=== PATIENT | male | born 1940 | race Caucasian/White ===

== ENCOUNTER 2016-08-05 09:44 | Emergency (ER) | payer OTHER ==
[~2016-08-05] VITALS: Ht 170.2 cm; Wt 77.1 kg
[~2016-08-05 09:44] MED LIST: ALLERGY RELIEF25 M2 PO; AMBIEN 10 MG TA10 MG PO; AMBIEN 5 MG TABL5 M1 PO; APAP/CODEINE ELI5 M1 OR; ASPIRIN81 M2 PO; BENTYL 10 MG CA10 M1 PO; BENTYL 20 MG TA20 M1 PO; CARBAMAZEPINE100 MG PO; CEFDINIR300 MG PO; CENTRUM SILVER1 EAC2 PO; DOXYCYCLINE 10100 MG PO; DOXYCYCLINE HY100 M3 PO; DULERA 100 MCG/13 GM INH; EQUETRO100 MG PO; FISH OIL 1,001000 M2 PO; FLAGYL500 MG PO; FLOMAX0.4 MG PO; GABAPENTIN 100100 MG PO; GINKGO BILOBA30 MG; LANSOPRAZOLE30 MG PO; LEVAQUIN 500 M500 M4 PO; LEVAQUIN 500 M500 MG PO; LISINOPRIL10 MG PO; LISINOPRIL20 MG PO; MIRALAX17 GM PO; MIRALAX255 GM PO; NABUMETONE 500500 M1 PO; NEURONTIN 300300 M1 PO; PAIN & SLEEP 21 EACH PO; PROTONIX40 M1 PO; SAW PALMETTO160 MG PO; STOOL SOFTENER100 M1 PO; TYLENOL PM PO; VANCOMYCIN100 MG/ML PO; ZYRTEC10 MG PO
[2016-08-05] MEDS ORDERED: MOBIC7.5 MG PO (10:12)
[2016-08-05] MEDS ORDERED: GLUCOSAMINE HC500 MG PO (10:13)
[2016-08-05 10:28] LABS: HEMATOCRIT 43.2 % (42.0-52.0); HEMOGLOBIN 15.2 gm/dL (14.0-18.0); MCH 31.7 pg (26.0-34.0); MCHC 35.1 % (28.0-37.0); MCV 90.3 fL (80.0-100.0); PLATELET COUNT 173 thou/uL (150-400); RBC 4.79 mil/uL (4.50-6.00); RDW 12.8 % (10.5-14.5); WBC 7.3 thou/uL (4.0-11.0)
[2016-08-05 10:29] LABS: MANUAL DIFF YES
[2016-08-05 10:35] LABS: CALCIUM 8.9 mg/dL (8.5-10.1); CREATININE 0.8 mg/dL (0.6-1.3); POTASSIUM 4.3 mmol/L (3.5-5.1)
[2016-08-05 10:40] LABS: ALBUMIN 3.9 g/dL (3.4-5.0); TOTAL BILIRUBIN 0.4 mg/dL (<0.1-1.0)
[2016-08-05 10:44] LABS: ABSOLUTE NEUTROPHILS 6.5 thou/uL (1.4-8.2); TOTAL CELL COUNT 100
[2016-08-05] MEDS ORDERED: CLEOCIN HCL150 MG PO (12:13)
== END 2016-08-05 13:17 | disposition home or self-care (01) ==
LOC: ER 09:44
PROVIDERS: Physician Assistant
DX: L03.211 Cellulitis of face (principal); K21.9 Gastro-esophageal reflux disease without esophagitis; I10 Essential (primary) hypertension; Z88.0 Allergy status to penicillin